=== PATIENT | male | born 1960 | race Caucasian/White ===

== ENCOUNTER 2017-02-25 13:49 | Emergency (ER) | payer OTHER ==
[~2017-02-25] VITALS: Ht 177.8 cm; Wt 83.5 kg
[2017-02-25 14:29] VITALS: Ht 177.8 cm; Wt 83.5 kg
[2017-02-25] MEDS ORDERED: IBUPROFEN 600 MG TAB PO ONE (16:30)
[2017-02-25] MEDS ORDERED: METHYLPREDNISOLONE 125 MG INJ IM ONE (16:30)
--- NOTE | 2017-02-25 16:41 | ERD ---
ER Documentation Chief Complaint Date/Time DATE: 02/25/17 TIME: 16:29 Chief Complaint LT FINGER NUMBNESS X7 DAYS, LT RIB PAIN X5 DAYS HPI Otherwise healthy 56-year-old male presents the emergency department complaining of left finger numbness and left rib pain 5 days. Patient states he works at [employer] but does not remember any distinct injury. Patient states the numbness and pain are intermittent throughout the day and did not seem to be associated with any exacerbating factor. Patient denies any weakness to the area. Patient currently describes his rib pain as a sharp 5 out of 10 nonradiating pain. Patient has attempted to treat his pain symptoms with Tylenol at home with only minor relief. Patient denies any upper extremity or leg swelling, shortness of breath, prolonged immobilization, or recent surgery. ROS All systems reviewed and are negative except as per history of present illness. Medications Home Meds Active Scripts Naproxen* (Naprosyn*) 500 Mg Tablet, 500 MG PO BID Y for PAIN AND/OR INFLAMMATION, #30 TAB Prov:MARIEL GUSMAN PA-C 02/25/17 Prednisone* (Prednisone*) 20 Mg Tab, 40 MG PO DAILY for 4 Days, TAB Prov:MARIEL GUSMAN PA-C 02/25/17 Hydrocodone/Acetaminophen ([place] 5-325 Tablet) 1 Each Tablet, 1 TAB PO QHS Y for PAIN, #7 TAB Prov:MARIEL GUSMAN PA-C 02/25/17 PMhx/Soc Medical and Surgical Hx: pt denies Medical Hx, pt denies Surgical Hx Hx Alcohol Use: No Hx Substance Use: No Hx Tobacco Use: No Smoking Status: Never smoker Physical Exam Vitals Vital Signs Date Time Temp Pulse Resp B/P Pulse Ox O2 Delivery O2 Flow Rate FiO2 02/25/17 14:29 98.0 69 16 148/79 98 Physical Exam Const: Well-developed, well-nourished, no acute distress Head: Atraumatic Eyes: Normal Conjunctiva ENT: Normal External Ears, Nose and Mouth. Neck: Full range of motion..~ No meningismus. Resp: Clear to auscultation bilaterally Cardio: Regular rate and rhythm, no murmurs Abd: Soft, non tender, non distended. Normal bowel sounds Skin: No petechiae or rashes Back: No midline or flank tenderness Ext: Full range of motion at C-spine, no midline tenderness. Full active range of motion at shoulder joints bilaterally. No tenderness to palpation of shoulder elbow or wrist joints. No tenderness to palpation or increased numbness when tapping at the lateral medial condyle of the elbow at the ulnar nerve. No increase tenderness or numbness when tapping at the wrist retinaculum region. Negative Tinel sign. No evidence of thenar atrophy. 2 point discrimination intact along radial and ulnar aspects of all fingers on the affected extremity. Tissue warm and well perfused. Brisk capillary refill. Radial pulses equal and bilateral. No cyanosis, or edema Neur: Awake and alert Psych: Normal Mood and Affect Results 24 hrs Current Medications Medications (Trade) Dose Ordered Sig/Tara Route PRN Reason Start Time Stop Time Status Last Admin Dose Admin Ibuprofen (Motrin) 600 mg ONCE ONCE PO 02/25/17 16:30 02/25/17 16:31 DC 02/25/17 17:11 Methylprednisolone Sodium Succinate (Solu-Medrol) 60 mg ONCE ONCE IM 02/25/17 16:30 02/25/17 16:31 DC 02/25/17 17:12 Procedures/MDM This is a 56-year-old otherwise healthy male who presents with intermittent left upper extremity numbness and left rib pain. Patient denies any injury or trauma. Vital signs reviewed. Patient is afebrile, normotensive, and non- hypoxic upon arrival. Patient does not exhibit any risk factors concerning for pneumothorax, DVT or PE. Patient's blood pressure was elevated (>120/80) but appears stable without evidence of hypertension emergency or urgency. The patient was counseled about the risks of hypertension and urged to pursue outpatient monitoring and therapy within a week with their primary care physician. Patient symptoms likely result of minor nerve compression. Patient's tissues is warm and well perfused, patient has full range of motion at joints of upper extremity, patient denies any weakness, fever, nausea or vomiting. At this time patient does not exhibit any obvious signs or symptoms concerning for compartment syndrome, carpal tunnel syndrome, de Quervain's tenosynovitis, or other nerve entrapment. Patient received anti-inflammatory medication in the emergency department and instructed to continue anti-inflammatory regimen for the next week. Patient instructed to follow-up with hand specialist if symptoms do not improve. Based on patient's history of present illness and physical examination the decision was made to discharge. The patient was re-evaluated after ED treatment and stabilizing measures, and symptoms have improved. There is no evidence of life threatening injuries or illnesses at this time. On re-examination, patient resting in no distress, stable vital signs, reports feeling better and safe for discharge with outpatient follow up with PMD in 1-2 days. Patient given return precautions. Departure Diagnosis: Primary Impression: Rib pain Additional Impression: Finger numbness MAREIL GUSMAN PA-C Feb 25, 2017 16:40
[2017-02-25] MEDS ORDERED: PRED20TA PO (16:43)
[2017-02-25] MEDS ORDERED: HYDR-906 PO (16:43)
[2017-02-25] MEDS ORDERED: NAPR-260 PO (16:43)
== END 2017-02-25 17:21 | disposition home or self-care (01) ==
LOC: FTE 13:49
DX: R07.81 Pleurodynia (principal)
CPT/HCPCS: 96372; J2930

== ENCOUNTER 2017-08-03 22:17 | Emergency (ER) | payer OTHER ==
[~2017-08-03] VITALS: Ht 177.8 cm; Wt 80.0 kg
[~2017-08-03 22:17] MED LIST: HYDR-906 PO; NAPR-260 PO; PRED20TA PO
[2017-08-03 22:24] VITALS: Ht 177.8 cm; Wt 80.0 kg
[2017-08-03] MEDS ORDERED: MUPI22OI2 TOP (23:45)
[2017-08-03] MEDS ORDERED: CEPH-443 PO (23:45)
--- NOTE | 2017-08-03 23:48 | ERD ---
ER Documentation Chief Complaint Date/Time DATE: 08/03/17 TIME: 23:46 Chief Complaint penile forekin not retracting back HPI Patient is a 57-year-old male who presents with penile swelling and he states he is unable to pull his foreskin forward. He has no difficulty urinating or blood in his urine or urinary frequency. No fever. No nausea or vomiting. He states it is not painful. This first happened this morning. He is uncircumcised. ROS All systems reviewed and are negative except as per history of present illness. Medications Home Meds Active Scripts Mupirocin* (Bactroban*) 2% -22 Gram Oint...g., 1 APPLIC TOP BID for 7 Days, EA Prov:VA DURAN PA-C 08/03/17 Cephalexin* (Keflex*) 500 Mg Capsule, 500 MG PO QID for 7 Days, CAP Prov:VA DURAN PA-C 08/03/17 Naproxen* (Naprosyn*) 500 Mg Tablet, 500 MG PO BID Y for PAIN AND/OR INFLAMMATION, #30 TAB Prov:MARIEL GUSMAN PA-C 02/25/17 Prednisone* (Prednisone*) 20 Mg Tab, 40 MG PO DAILY for 4 Days, TAB Prov:MARIEL GUSMAN PA-C 02/25/17 Hydrocodone/Acetaminophen ([place] 5-325 Tablet) 1 Each Tablet, 1 TAB PO QHS Y for PAIN, #7 TAB Prov:MARIEL GUSMAN PA-C 02/25/17 Allergies Allergies: Coded Allergies: No Known Allergy (Unverified , 08/03/17) PMhx/Soc History of Surgery: No Anesthesia Reaction: No Hx Neurological Disorder: No Hx Respiratory Disorders: No Hx Cardiac Disorders: No Hx Psychiatric Problems: No Hx Miscellaneous Medical Probl: No Hx Alcohol Use: No Hx Substance Use: No Hx Tobacco Use: No Smoking Status: Never smoker FmHx Family History: No diabetes Physical Exam Vitals Vital Signs Date Time Temp Pulse Resp B/P Pulse Ox O2 Delivery O2 Flow Rate FiO2 08/03/17 22:24 97.8 80 20 134/81 100 Physical Exam INITIAL VITAL SIGNS: Reviewed by me GENERAL: Awake, alert and oriented x 4, well appearing, nontoxic, speaking in full sentences. No acute distress HEAD: Atraumatic RESPIRATORY: Clear to auscultation bilaterally. Symmetric chest wall rise. No wheezing or rales. No accessory muscle use. CV: Regular rate and rhythm. No murmurs, rubs, or gallops. ABDOMEN: Soft, non-distended. Nontender. Negative [place]. Negative Mc[place]neys point tenderness. No CVA tenderness bilaterally. No guarding. No rebound. : Interferential swelling of the foreskin around the start of the glans of the penis consistent with paraphimosis Procedures/MDM 57-year-old male presents with paraphimosis. I was able to apply a small amount of pressure to it and corrected. I reviewed the case with Dr. Lorenz who recommended giving the patient Bactroban cream as well as oral Keflex. I told him he should follow-up with urology for possible outpatient circumcision if this does not resolve or continues to occur. Patient counseled regarding my diagnostic impression and care plan. Prior to discharge all questions answered. Pt agrees with treatment plan and understands strict return precautions. Pt is instructed to follow up with primary care provider within 24-48 hours. Precautionary instructions provided including instructions to return to the ER if not improving or for any worsening or changing symptoms or concerns. Departure Diagnosis: Primary Impression: Paraphimosis Condition: Stable Patient Instructions: Paraphimosis Additional Instructions: Call your primary care doctor TOMORROW for an appointment during the next 1-2 days.See the doctor sooner or return here if your condition worsens before your appointment time. VA DURAN PA-C Aug 03, 2017 23:47
== END 2017-08-04 01:19 | disposition home or self-care (01) ==
LOC: FTE 22:17
DX: N47.2 Paraphimosis (principal)
CPT/HCPCS: 99284

== ENCOUNTER 2019-04-20 21:36 | Emergency (ER) | payer OTHER ==
[~2019-04-20] VITALS: Ht 182.9 cm; Wt 85.0 kg
[~2019-04-20 21:36] MED LIST changes: +CEPH-443 PO; +HYDR-4011 PO; -HYDR-906 PO; +MUPI22OI2 TOP; -NAPR-260 PO; +NAPR-985 PO
[2019-04-20 21:40] VITALS: Ht 182.9 cm; Wt 85.0 kg
[2019-04-20] MEDS ORDERED: IBUP-1542 PO (23:24)
[2019-04-20] MEDS ORDERED: LORA-441 PO (23:24)
--- NOTE | 2019-04-20 23:29 | ERD ---
ER Documentation Chief Complaint Chief Complaint REPORTS ANXIETY D/T TO LIFE STRESSES HPI 58-year-old male with no reported past medical or surgical history presents with complaint of anxiety over the past week. Patient describes a number of additional stressors including increased work pressures, marital stress, family issues. States he has suffered from anxiety in the past and taken Ativan for his symptoms. Time of evaluation patient speaking hurriedly but otherwise appearing calm in no acute distress. He reports good health and is without any medical complaints. He otherwise denies suicidal homicidal ideation. ROS All systems reviewed and are negative except as per history of present illness. Medications Home Meds Active Scripts Ibuprofen* (Motrin*) 600 Mg Tab, 600 MG PO Q6, #30 TAB Prov:DONA COTTER PA-C 04/20/19 Lorazepam* (Ativan*) 0.5 Mg Tablet, 0.5 MG PO Q8, #10 TAB Prov:DONA COTTER PA-C 04/20/19 Mupirocin* (Bactroban*) 2% -22 Gram Oint...g., 1 APPLIC TOP BID for 7 Days, EA Prov:VA DURAN PA-C 08/03/17 Cephalexin* (Keflex*) 500 Mg Capsule, 500 MG PO QID for 7 Days, CAP Prov:VA DURAN PA-C 08/03/17 Naproxen* (Naprosyn*) 500 Mg Tablet, 500 MG PO BID PRN for PAIN AND/OR INFLAMMATION, #30 TAB Prov:MARIEL GUSMAN PA-C 02/25/17 Prednisone* (Prednisone*) 20 Mg Tab, 40 MG PO DAILY for 4 Days, TAB Prov:MARIEL GUSMAN PA-C 02/25/17 Hydrocodone/Acetaminophen ([place] 5-325 Tablet) 1 Each Tablet, 1 TAB PO QHS PRN for PAIN, #7 TAB Prov:MARIEL GUSMAN PA-C 02/25/17 Allergies Allergies: Coded Allergies: No Known Allergy (Unverified , 08/03/17) PMhx/Soc Medical and Surgical Hx: pt denies Medical Hx, pt denies Surgical Hx History of Surgery: No Anesthesia Reaction: No Hx Neurological Disorder: No Hx Respiratory Disorders: No Hx Cardiac Disorders: No Hx Psychiatric Problems: No Hx Miscellaneous Medical Probl: No Hx Alcohol Use: No Hx Substance Use: No Hx Tobacco Use: No Smoking Status: Never smoker FmHx Family History: No diabetes, No coronary disease, No other Physical Exam Vitals Vital Signs Date Temp Pulse Resp B/P (MAP) Pulse Ox O2 O2 Flow FiO2 Time Delivery Rate 04/20/19 98.0 78 16 133/80 100 21:40 (97) Physical Exam I have reviewed the triage vital signs. Const: Well nourished, well developed, appears stated age Eyes: PERRL, no conjunctival injection HENT: NCAT, Neck supple without meningismus CV: RRR, Warm, well-perfused extremities RESP: CTAB, Unlabored respiratory effort GI: soft, non-tender, non-distended, no masses MSK: No gross deformities appreciated Skin: Warm, dry. No rashes Neuro: grossly non focal Psych: Appropriate mood and affect. Procedures/MDM Patient presenting with anxiety without evidence for suicidal ideation. Medical review of systems negative, no obvious disease on medical screening exam. Will discharge with short course of Ativan, strict return precautions, patient advised follow-up with PMD. G disposition DISPOSITION PLAN: We discussed follow up with the patient's primary care doctor within 24 to 48 h ours. Patient counseled regarding my diagnostic impression and care plan. Prior to discharge all questions answered. Pt agrees with treatment plan and understands strict return precautions. Precautionary instructions provided including instructions to return to the ER if not improving or for any worsening or changing symptoms or concerns. Disclaimer: Inadvertent spelling and grammatical errors are likely due to EHR/dictation software use and do not reflect on the overall quality of patient care. Also, please note that the electronic time recorded on this note does not necessarily reflect the actual time of the patient encounter. Departure Diagnosis: Primary Impression: Anxiety Condition: Stable Patient Instructions: Anxiety Reaction Referrals: [facility] YOU HAVE RECEIVED A MEDICAL SCREENING EXAM AND THE RESULTS INDICATE THAT YOU DO NOT HAVE A CONDITION THAT REQUIRES URGENT TREATMENT IN THE EMERGENCY DEPARTMENT. FURTHER EVALUATION AND TREATMENT OF YOUR CONDITION CAN WAIT UNTIL YOU ARE SEEN IN YOUR DOCTORS OFFICE WITHIN THE NEXT 1-2 DAYS. IT IS YOUR RESPONSIBILITY TO MAKE AN APPOINTMENT FOR FOLOW-UP CARE. IF YOU HAVE A PRIMARY DOCTOR --you should call your primary doctor and schedule an appointment IF YOU DO NOT HAVE A PRIMARY DOCTOR YOU CAN CALL OUR PHYSICIAN REFERRAL HOTLINE AT IF YOU CAN NOT AFFORD TO SEE A PHYSICIAN YOU CAN CHOSE FROM THE FOLLOWING COMMU [facility] [address] [facility] [address] [facility] [facility] [address] [facility] [address] [facility]. [facility] [phone] [id number] [facility]. [facility] [address] Additional Instructions: Call your primary care doctor TOMORROW for an appointment during the next 2-3 days.See the doctor sooner or return here if your condition worsens before your appointment time. DONA COTTER PA-C Apr 20, 2019 23:29
[2019-04-21 00:01] VITALS: BP 138/90; PULSE 69; RESP 18
== END 2019-04-21 00:02 | disposition home or self-care (01) ==
LOC: FTE 21:36
DX: F41.9 Anxiety disorder, unspecified (principal)
CPT/HCPCS: 99283